=== PATIENT | female | born 1945 | race Caucasian/White ===

== ENCOUNTER 2018-11-30 10:15 | Observation (INO) | payer MEDICARE ==
[~2018-11-30] VITALS: Ht 167.6 cm; Wt 69.4 kg
[2018-11-30] MEDS ORDERED: HYDRALAZINE HCL 20 MG/ML VIAL IV NR (11:00)
[2018-11-30 11:17] LABS: BASOPHILS # (AUTO) 0.1 (0.0-0.1); BASOPHILS % 0.6 % (0.0-1.0); EOSINOPHILS # (AUTO) 0.2 (0.0-0.4); EOSINOPHILS % 2.2 % (0.0-6.0); HEMATOCRIT 39.6 % (34.2-44.1); HEMOGLOBIN 13.6 g/dL (12.0-16.0); LYMPHOCYTES # (AUTO) 2.1 (1.0-3.2); LYMPHOCYTES % 24.4 % (18.0-39.1); MEAN CORPUSCULAR HEMOGLOBIN 31.9 pg (28-32); MEAN CORPUSCULAR HGB CONC 34.3 g/dL (31-35); MONOCYTES # (AUTO) 0.7 (0.2-0.8); MONOCYTES % 8.7 % (4.4-11.3); NEUTROPHILS # (AUTO) 5.4 (2.1-6.9); NEUTROPHILS % 63.9 % (38.7-80.0); PLATELET COUNT 396 x10e3/uL (140-360); RED BLOOD COUNT 4.26 x10e6/uL (3.6-5.1); RED CELL DISTRIBUTION WIDTH 12.7 % (11.7-14.4)
[2018-11-30 11:23] LABS: INR 0.85; PROTHROMBIN TIME 12.1 seconds (11.9-14.5)
--- NOTE | 2018-11-30 11:30 | Diagnostic Imaging Report ---
Exam: Head CT without contrast Indication: Dizziness, hypertension Comparisons: None Technique: Axial images were obtained from the skull base to the vertex. Coronal and sagittal images reconstructed from the axial data. Dose modulation, iterative reconstruction, and/or weight based adjustment of the mA/kV was utilized to reduce the radiation dose to as low as reasonably achievable. FINDINGS: Scalp/skull: No abnormalities. Extra-axial spaces: No masses. No fluid collections. Brain sulci: Mildly prominent. Ventricles: Mild compensatory dilatation. No hydrocephalus. Parenchyma: Scattered hypodensities in the supratentorial white matter are small vessel ischemic changes. Old lacunar vascular insult in the left putamen. No masses, hemorrhage, acute or chronic cortical vascular insults. Sellar/suprasellar region: No abnormalities. Craniocervical junction: Patent foramen magnum. No Chiari one malformation. Incidental findings: Atherosclerotic calcifications in the carotid siphons. IMPRESSION: No acute abnormalities. Chronic findings: 1. Mild generalized volume loss. 2. Mild supratentorial white matter small vessel ischemic changes. 3. Old lacunar vascular insult in the left putamen. A preliminary report was provided by Dr. Agarwal on 11/30/2018 11:30 AM. The images and preliminary report provided by the neuroradiology fellow were reviewed and a final report issued by Dr. Hayes neuroradiology faculty on 11/30/2018 at 1:49 PM. Signed by: Dr. Milly Rodriguez M.D. on 11/30/2018 1:49 PM
[2018-11-30 11:31] LABS: ALANINE AMINOTRANSFERASE 16 IU/L (0-55); ALBUMIN 4.2 g/dL (3.5-5.0); ALBUMIN/GLOBULIN RATIO 1.1 (0.8-2.0); ALKALINE PHOSPHATASE 65 IU/L (40-150); BLOOD UREA NITROGEN 12 mg/dL (7-26); BUN/CREATININE RATIO 15 (6-25); CALCIUM 10.8 mg/dL (8.4-10.2); CARBON DIOXIDE 28 mmol/L (22-29); CHLORIDE 98 mmol/L (98-107); CREATINE KINASE 70 IU/L (29-168); CREATININE, SERUM 0.82 mg/dL (0.57-1.11); EST GLOMERULAR FILTRATION RATE > 60 ML/MIN (60-); GLUCOSE 123 mg/dL (74-118); MAGNESIUM 2.9 MG/DL (1.3-2.1); SODIUM 140 mmol/L (136-145)
[2018-11-30 11:58] LABS: CLARITY,URINE CLOUDY (CLEAR); COLOR,URINE YELLOW (YELLOW)
[2018-11-30 11:59] LABS: BILIRUBIN,URINE NEGATIVE (NEGATIVE); KETONES,URINE NEGATIVE (NEGATIVE); LEUKOCYTE ESTERASE ,URINE NEGATIVE (NEGATIVE); NITRITE,URINE NEGATIVE (NEGATIVE); PROTEIN,URINE DIPSTICK 1+ (NEGATIVE); URINE UROBILINOGEN 0.2 mg/dL (0.2 - 1)
[2018-11-30] MEDS ORDERED: ONDANSETRON HCL INJ 2MG/ML 2ML 2 MG/ML VIAL IV NR (12:00)
[2018-11-30] MEDS ORDERED: MECLIZINE HCL 12.5 MG TAB PO ONE (12:00)
--- NOTE | 2018-11-30 12:03 | Diagnostic Imaging Report ---
EXAMINATION: CHEST SINGLE (PORTABLE) INDICATION: Dizziness. COMPARISON: Chest radiograph 04/03/2010. FINDINGS: TUBES and LINES: There is a cardiac loop recorder. LUNGS: Lungs are well inflated. Azygos lobe. There is no evidence of pneumonia or pulmonary edema. PLEURA: No pleural effusion or pneumothorax. HEART AND MEDIASTINUM: The cardiomediastinal silhouette is unremarkable. BONES AND SOFT TISSUES: No acute osseous abnormality. UPPER ABDOMEN: No free air under the diaphragm. IMPRESSION: No acute radiographic abnormality. Signed by: Dr. Alvin Bernstein MD on 11/30/2018 11:59 AM
[2018-11-30 12:20] LABS: AMORPHOUS SEDIMENT,URINE MODERATE (FEW); BACTERIA,URINE MODERATE /HPF; EPITHELIAL CELLS,URINE FEW /LPF; RBC,URINE 0-5 /HPF (0-5); WBC,URINE (MAN) 0-5 /HPF (0-5)
[2018-11-30] MEDS ORDERED: HYDROCODONE/APAP 10MG-325MG TAB PO NR (12:30)
[2018-11-30] MEDS ORDERED: CLONIDINE HCL 0.1 MG TAB PO NR (12:30)
[2018-11-30] MEDS ORDERED: CALCIUM 1,0001 EACH (12:43)
[2018-11-30] MEDS ORDERED: PRAVACHOL20 MG PO (12:43)
[2018-11-30] MEDS ORDERED: COZAAR25 MG PO (12:43)
[2018-11-30] MEDS ORDERED: VALIUM5 MG PO (12:43)
[2018-11-30] MEDS ORDERED: NORCO 10-325 T1 EACH PO (12:43)
[2018-11-30] MEDS ORDERED: FOLIC ACID1 MG PO (12:43)
[2018-11-30] MEDS ORDERED: ZOLOFT50 MG PO (12:43)
[2018-11-30] MEDS ORDERED: MAGNESIUM OXID400 MG PO (12:43)
[2018-11-30] MEDS ORDERED: COQ-10100 MG PO (12:43)
[2018-11-30] MEDS ORDERED: AMLODIPINE BESY10 MG PO (12:43)
[2018-11-30] MEDS ORDERED: COLACE100 MG PO (12:43)
[2018-11-30] MEDS ORDERED: MIRALAX17 GM (12:43)
[2018-11-30] MEDS ORDERED: BACLOFEN10 MG PO (12:43)
[2018-11-30] MEDS ORDERED: CLONIDINE HCL0.1 MG PO (12:43)
[2018-11-30] MEDS ORDERED: ONDANSETRON HCL INJ 2MG/ML 2ML 2 MG/ML VIAL IV PRN (13:00)
[2018-11-30] MEDS ORDERED: SODIUM CHLORIDE 0.9% 1000ML 1,000 ML IV ONE (13:00)
--- OUTSIDE RECORDS SUMMARY | 2018-11-30 13:02 | XMS REPORT ---
Author Author [facility] Address Unknown Phone Unavailable Care Team Providers Care Cyber Defense Analyst Name Role Phone Gilmar RASHEED Unavailable Unavailable Problems This patient has no known problems. Allergies, Adverse Reactions, Alerts This patient has no known allergies or adverse reactions. Medications This patient has no known medications. Results Test Description Test Time Test Comments Text Results Atomic Results Result Comments CHEST SINGLE (PORTABLE) 2018-11-30 11:57:00 [place] [address] Patient Name: EMY MONROY I MR #: [id number] : 1945 Age/Sex: 73/F Req #: [id number] Adm Physician: Ordered by: HUAN RASHEED MD Report #: [id number] Location: ER Room/Bed: Procedure: [id number] DX/CHEST SINGLE (PORTABLE) Exam Date: 11/30/18 Exam Time: 1118 REPORT STATUS: Signed EXAMINATION: CHEST SINGLE (PORTABLE) I NDICATION: Dizziness. COMPARISON: Chest radiograph 04/03/2010. FINDINGS: TUBES and LINES: There is a cardiac loop recorder. LUNGS: Lungs are well inflated. Azygos lobe. There is no evidence of pneumonia or pulmonary edema. PLEURA: No pleural effusion or pneumothorax. HEART AND MEDIASTINUM: The cardiomediastinal silhouette is unremarkable. BONES AND SOFT TISSUES: No acute osseous abnormality. UPPER ABDOMEN: No free air under the diaphragm. IMPRESSION: No acute radiographic abnormality. Signed by: Dr. Jame Lizama MD on 11/30/2018 11:59 AM Dictated By: JAME LIZAMA MD 115 Transcribed By: MARIANELA on 11/30/18 1150 COPY TO: HUAN RASHEED MD
--- OUTSIDE RECORDS SUMMARY | 2018-11-30 13:02 | XMS REPORT | Clinical Summary ---
Author Author [facility] Address Unknown Phone Unavailable Care Team Providers Care Personnel Security Specialist Name Role Phone Audie Muniz MD PCP Allergies Comments Active Allergy Reactions Severity Noted Date Lowers her blood pressure Digitalis Glycosides Other (See 12/17/2016 Comments) Gluten 12/29/2016 Iodinated Contrast- Oral 12/26/2016 And Iv Dye Iodine Shortness Of High 12/17/2016 Breath Butorphanol Tartrate 12/17/2016 Lowers her blood pressure Tramadol Other (See 12/17/2016 Comments) Medications End Date Status Medication Sig Dispensed Refills Start Date Active docusate sodium (COLACE) Take 100 mg 0 100 MG capsule by mouth 2 (two) times a day. Active baclofen (LIORESAL) 20 MG Take 20 mg by 0 tablet mouth 2 (two) times a day. Active calcium carbonate-vitamin Take 2 0 D3 500 mg-200 unit per tablets by tablet mouth 2 (two) times a day with meals. Active magnesium oxide 250 mg Take 250 mg 0 tablet by mouth every morning. Active amLODIPine (NORVASC) 10 Take 10 mg by 0 mg tablet mouth every morning. Active losartan (COZAAR) 100 MG Take 100 mg 0 tablet by mouth every evening. Active diazePAM (VALIUM) 5 MG Take 5 mg by 0 tablet mouth every 8 (eight) hours as needed for anxiety. Active clonIDINE (CATAPRES) 0.1 Take 0.1 mg 0 MG tablet by mouth daily as needed for high blood pressure (SBP>160). For SBP>160 Active ondansetron (ZOFRAN) 4 MG Take 4 mg by 0 tablet mouth every 6 (six) hours as needed for nausea or vomiting. Active polyethylene glycol Take 17 g by 0 (MIRALAX) 17 gram packet mouth daily as needed. For constipation Active nitroglycerin (NITROSTAT) Place 0.4 mg 0 0.4 MG SL tablet under the tongue every 15 (fifteen) minutes as needed for chest pain (max 3 tabs until severe pain stops). Active coenzyme Q10 (CO Q-10) Take 100 mg 0 100 mg capsule by mouth every evening. Active sertraline (ZOLOFT) 100 Take 100 mg 0 03/01/ MG tablet by mouth 7 nightly. Active pravastatin (PRAVACHOL) Take 20 mg by 0 20 MG tablet mouth 7 nightly. Active gabapentin (NEURONTIN) Take 200 mg 0 100 mg capsule by mouth 7 nightly. Active HYDROcodone-acetaminophen Take 1 tablet 0 (NORCO) 10-325 mg per by mouth 3 7 tablet (three) times a day as needed for pain. Active oxyCODone-acetaminophen Take 1 tablet 0 (PERCOCET) 10-325 mg per by mouth 4 7 tablet (four) times a day as needed for pain. Active folic acid (FOLVITE) 800 Take 800 mcg 0 MCG tablet by mouth every evening. Active Problems Problem Noted Date Head injury due to trauma 04/04/2017 Hypotension 03/08/2017 Chest pain, rule out acute myocardial infarction 01/23/2017 Drug-induced constipation 12/27/2016 Herniated lumbar intervertebral disc 12/26/2016 Arthritis Coronary artery disease Hypertension AL (myocardial infarction) Family History Medical History Relation Name Comments Cancer Brother Diabetes Brother Hypertension Brother Diabetes Brother Hypertension Brother Hypertension Father Kidney cancer Father Hypertension Maternal Grandfather Hypertension Maternal Grandmother Hypertension Mother Hypertension Paternal Grandfather Hypertension Paternal Grandmother Relation Name Status Comments Brother Brother Father Maternal Grandfather Maternal Grandmother Mother Paternal Grandfather Paternal Grandmother Social History Date Tobacco Use Types Packs/Day Years Used Never Smoker Alcohol Use Drinks/Week oz/Week Comments No Sex Assigned at Date Recorded Not on file Industry Job Start Date Occupation Not on file Not on file Not on file Travel End Travel History Travel Start No recent travel history available. Last Filed Vital Signs Not on file Plan of Treatment Health Maintenance Due Date Last Done Comments BREAST CANCER SCREENING 1993 COLON CANCER SCREENING 1993 SHINGLES VACCINES (#1) 1993 65+ PNEUMOCOCCAL VACCINE 2008 (1 of 2 - PCV13) PNEUMOCOCCAL 2008 POLYSACCHARIDE VACCINE AGE 65 AND OVER INFLUENZA VACCINE 02/27/2019 Implants Device Identifier Shelf Expiration Date Model / Serial / Lot Implanted Type Area Manufactur er Cardiac Pacemakers And Related Cardiac Products Pacemakers and Related Products Link Results Not on fileafter 11/29/2017 Insurance Payer Benefit Subscriber ID Type Phone Address Plan / Group MEDICARE MEDICARE xxxxxxxxxx Medicare [place], [place] PART A AND B [employer] M[employer] OF xxxxxx-xx Commercial [employer] Advance Directives Patient has advance care planning documents, and code status on file. For more i nformation, please contact: David Pereira [address] [place] [address] Date Inactivated Comments Code Status Date Activated 01/24/2017 8:38 PM Full Code 01/23/2017 10:20 AM Code Status decision reached by: Patient
--- NOTE | 2018-11-30 13:03 | NUR ---
report received from ER for patient transfer. patient to arrive alert and oriented via wheelchair.
--- NOTE | 2018-11-30 13:20 | NUR ---
patient arrived on unit via wheelchair, alert and oriented. call pittman within reach and bed in lowest position
[2018-11-30 13:33] VITALS: BP 176/82
[2018-11-30] MEDS ORDERED: PNEUMOCOCCAL VACCINE POLYVALENT 23 MCG/0.5 ML VIAL IM NR (13:40)
[2018-11-30 13:44] VITALS: BP 176/82
[2018-11-30] MEDS ORDERED: CLONIDINE HCL 0.1 MG TAB PO PRN (13:45)
[2018-11-30 13:55] VITALS: BP 176/82
--- NOTE | 2018-11-30 14:47 | History and Physical ---
CHIEF COMPLAINT: Dizziness and vertigo. HISTORY OF PRESENT ILLNESS: The patient is a 73-year-old woman. She has a history of prior chest pain and coronary artery spasm. She is followed by Dr. Gonzalez Clifford in [place], [place]. She had a recent echocardiogram and stress test that were negative. She also has a loop recorder. She came in complaining of vertigo that was worse when she would sit up. She had some associated dizziness, but no ataxia. She did not have any focal arm or leg weakness. She did have some nausea. PAST MEDICAL HISTORY: 1. Migraine headaches. 2. Chronic back pain. 3. Hypertension. 4. Coronary artery spasms. PAST SURGICAL HISTORY: 1. Back surgery. 2. Cholecystectomy. ALLERGIES: THE PATIENT IS ALLERGIC TO IODINE, MACROBID, AND TRAMADOL. THE PATIENT ALSO REPORTS BEING ALLERGIC TO DIGOXIN. SOCIAL HISTORY: The patient is not an active smoker or drinker. FAMILY HISTORY: Noncontributory. REVIEW OF SYSTEMS: The patient is afebrile. The patient has no headache. There is no neck pain. She does not complain of any sore throat. She has no chest pain. She does not have cough or difficulty breathing. She has no abdominal pain. She has no nausea or vomiting. She has no leg edema. PHYSICAL EXAMINATION: VITAL SIGNS: The patient is afebrile, blood pressure is 176/82, and the pulse is 76. HEENT: No facial swelling or erythema. The nasal mucosa is normal. The oropharynx is normal. LYMPHATIC: No submandibular, cervical, or supraclavicular adenopathy. CARDIAC: Regular rate and rhythm with normal S1, S2. LUNGS: Auscultation of lungs reveals clear breath sounds bilaterally. There is no wheezing. ABDOMEN: Soft, nontender. There is no rebound or guarding. EXTREMITIES: No leg edema or calf tenderness. There is no cyanosis, clubbing. SKIN: No rashes. NEUROLOGICAL: No focal abnormalities. LABORATORY DATA: BUN to creatinine ratio is normal. The other electrolytes are within normal limits. CBC is normal. PT and INR normal. RADIOGRAPHIC DATA: 1. CT scan of the brain shows no active disease. 2. Chest x-ray shows no active disease. IMPRESSION: 1. Vertigo. 2. Hypertension. 3. Chronic back pain. 4. Migraines. PLAN: 1. The patient will be placed in observation. 2. Carotid duplex study and echocardiogram. 3. MRI. 4. Neurology consultation. 5. Cardiology consultation. MD AMA Khan/GIANLUCA /[id number] MTDJose
[2018-11-30] MEDS: DIAZEPAM 5 MG TAB PO SCH ×2 (15:18→21:08)
--- NOTE | 2018-11-30 15:36 | Diagnostic Imaging Report ---
EXAMINATION: MRI of the brain without contrast. HISTORY: Dizziness, vertigo, essential hypertension COMPARISON: None. TECHNIQUE: Sagittal T2; axial DWI, T2, FLAIR, T1-IR, T2 gradient echo; coronal FLAIR. IMAGE QUALITY: Adequate. FINDINGS: Parenchyma: 1. A few periventricular white matter T2 and FLAIR hyperintensities, most likely age appropriate minimal chronic microvascular ischemic changes. Otherwise no areas of abnormal signal intensity in the brain parenchyma. 2. No mass, hemorrhage, acute or chronic infarcts. Skull: Unremarkable. Vessels: Expected flow voids present in the major arteries and dural sinuses. Extra-axial spaces: No abnormal signal intensity or mass effect. Brain volume: Within normal limits for age. Ventricles: No hydrocephalus or displacement. Foramen magnum: Unremarkable. Sella: Unremarkable. Paranasal / mastoid sinuses: No significant inflammatory disease. Incidental findings: Partially visualized degenerative changes of the cervical spine with canal narrowing at C4-C5. IMPRESSION: No intracranial abnormalities, particularly no acute infarcts. Signed by: Dr. Milly Rodriguez M.D. on 11/30/2018 3:33 PM
[2018-11-30 15:54] VITALS: BP 131/63
[2018-11-30] MEDS: LOSARTAN POTASSIUM 25 MG TAB PO SCH (18:00)
--- NOTE | 2018-11-30 18:45 | NUR ---
handoff report given to security shift manager nurse, patient aware of change and in no distress. call pittman within reach and bed in lowest position.
[2018-11-30 19:21] VITALS: BP 131/63
[2018-11-30 19:49] LABS: CREATINE KINASE 59 IU/L (29-168)
[2018-11-30 20:00] VITALS: BP 110/62
[2018-11-30] MEDS: MECLIZINE HCL 12.5 MG TAB PO PRN (21:04)
[2018-11-30] MEDS: HYDROCODONE/APAP 10MG-325MG TAB PO PRN (21:04)
[2018-12-01] VITALS: BP 117/56
[2018-12-01] MEDS: HYDROCODONE/APAP 10MG-325MG TAB PO PRN ×2 (03:28→09:35)
[2018-12-01 04:00] VITALS: BP 137/69
[2018-12-01 05:52] LABS: BASOPHILS # (AUTO) 0.1 (0.0-0.1); BASOPHILS % 0.9 % (0.0-1.0); EOSINOPHILS # (AUTO) 0.2 (0.0-0.4); EOSINOPHILS % 4.2 % (0.0-6.0); HEMATOCRIT 35.5 % (34.2-44.1); HEMOGLOBIN 11.8 g/dL (12.0-16.0); LYMPHOCYTES # (AUTO) 1.7 (1.0-3.2); LYMPHOCYTES % 31.9 % (18.0-39.1); MEAN CORPUSCULAR HEMOGLOBIN 31.8 pg (28-32); MEAN CORPUSCULAR HGB CONC 33.2 g/dL (31-35); MEAN CORPUSCULAR VOLUME 95.7 fL (81-99); MONOCYTES # (AUTO) 0.7 (0.2-0.8); MONOCYTES % 12.7 % (4.4-11.3); NEUTROPHILS # (AUTO) 2.7 (2.1-6.9); NEUTROPHILS % 49.9 % (38.7-80.0); PLATELET COUNT 337 x10e3/uL (140-360); RED BLOOD COUNT 3.71 x10e6/uL (3.6-5.1); RED CELL DISTRIBUTION WIDTH 12.6 % (11.7-14.4)
[2018-12-01 06:28] LABS: ALANINE AMINOTRANSFERASE 13 IU/L (0-55); ALBUMIN 3.3 g/dL (3.5-5.0); ALBUMIN/GLOBULIN RATIO 1.1 (0.8-2.0); ALKALINE PHOSPHATASE 51 IU/L (40-150); ANION GAP 14.1 mmol/L (8-16); BLOOD UREA NITROGEN 12 mg/dL (7-26); BUN/CREATININE RATIO 16 (6-25); CALCIUM 9.2 mg/dL (8.4-10.2); CARBON DIOXIDE 25 mmol/L (22-29); CHLORIDE 105 mmol/L (98-107); CREATININE, SERUM 0.73 mg/dL (0.57-1.11); EST GLOMERULAR FILTRATION RATE > 60 ML/MIN (60-); GLUCOSE 98 mg/dL (74-118); POTASSIUM 4.1 mmol/L (3.5-5.1); SODIUM 140 mmol/L (136-145)
[2018-12-01 06:36] LABS: CREATINE KINASE MB 1.2 ng/mL (0-5.0)
--- NOTE | 2018-12-01 06:40 | NUR ---
handoff report received from shift mechanic nurse, patient aware of change and in no distress at this time, son at bedside. call pittman within reach and bed in lowest position.
[2018-12-01 07:10] VITALS: BP 120/69
[2018-12-01] MEDS ORDERED: AMLODIPINE BESYLATE 10 MG TAB PO SCH (09:00)
[2018-12-01] MEDS ORDERED: ASPIRIN 81 MG ENTERIC COATED PO SCH (09:00)
[2018-12-01] MEDS ORDERED: SERTRALINE HCL 100 MG TAB PO SCH (09:00)
[2018-12-01] MEDS ORDERED: MAGNESIUM OXIDE 400 MG TAB PO SCH (09:00)
[2018-12-01] MEDS ORDERED: DOCUSATE SODIUM 100 MG CAP PO SCH (09:00)
[2018-12-01] MEDS ORDERED: FOLIC ACID 1 MG TAB PO SCH (09:00)
[2018-12-01 09:01] VITALS: BP 120/69
[2018-12-01] MEDS: DIAZEPAM 5 MG TAB PO SCH (09:25)
[2018-12-01] MEDS: LOSARTAN POTASSIUM 25 MG TAB PO SCH (09:25)
[2018-12-01] MEDS: MECLIZINE HCL 12.5 MG TAB PO PRN (10:25)
--- NOTE | 2018-12-01 11:10 | NUR ---
CASE MANAGEMENT INITIAL ASSESSMENT Tube Sizer Operator to bedside to discuss plan of care with patient/family. CM/SW role and care transitions discussed. Anticipated discharge plan discussed along with duration of care. CM/SW discussed patients right to make decisions in care. CM/SW work hours given. Patient lives: WITH HER FAMILY OF 6 AND A DOG Admit/Transfer: ER Hospital/ER visits since last admit:SHE HAS BEEN TO HOSP/ER THIS PAST YEAR W/ NAUSEA AND ALSO CHEST PAIN POA/Emergency contact: SON: POONAM KEE [phone] Current/Previous Home Health: NO PCP/Follow-up Care: DR. MANUEL AGARWAL Current/Previous DME: [facility], W/C Medications (referring to index hospitalization or the first time you were in the hospital) a. Were changes made in your medications when you were in the hospital on [date of index hospitalization]? Yes No X Not sure Explain: Note: If no or not sure, please skip to question d b. Did you understand the changes? Yes No Explain: c. Were you able to obtain your new medications right away? Yes No n/a SNF only Explain: d. Were you able to take your medications like the doctor wanted you to? X Yes No Explain: MY SON SETS UP MY MEDICATIONS FOR ME TO TAKE e. Did the hospital give you an accurate, easy to understand list of medications when you left? X Yes No n/a SNF only Explain: Scale of 1-10 how comfortable does patient feel with disease management in outpatient settin Other Services: 0 Employment Status: RETIRED Areas of Concerns: 0 Referral Needs: 0 Education Needs: ANY NEW MEDS; EDUCATED ON [place]AR[place] LETTER IMM/STARKEY given and signed (if applicable): YES, STARKEY Goal for discharge: TO RETURN HOME CM/SW left business card at the bedside with contact information. Name and number was also written on the patients whiteboard. Patient verbalized understanding of discussion. CM will follow-up with ongoing discharge and transition of care needs.
[2018-12-01 12:07] VITALS: BP 144/80
--- NOTE | 2018-12-01 14:49 | NUR ---
patient alert and oriented. discharge instructions given to patient, patient verbalized understanding. IV catheter discontinued, catheter in tact and small dressing applied. patient to be wheeled to personal auto for daughter to drive home.
--- NOTE | 2018-12-01 17:12 | Consultation ---
DATE OF CONSULTATION: Cardiology Consultation Thank you, Dr. Eduardo Mckoy for this cardiac consultation. IMPRESSION: 1. Migraine and vertigo. 2. History of significant C-spine and thoracic spine arthritis and back surgery in the past, on pain medications and pain therapy doctor is following as an outpatient. 3. The patient's history of chest pain. 4. Hypertension. 5. Some anxiety. Ms. Woo Glez is a pleasant patient about 73-year-old is admitted under Dr. Eduardo Mckoy on 11/30/2018 for nausea, some mild vomiting, dizziness, and vertigo-like symptoms. These are all started new for her. According to her, she never had any migraines, headaches, or vertigo. When she turned to the left side, and today she is feeling better. The patient has a history of hypertension and the patient also has history of chest pain. The patient had cardiac stress test done possibly about 3 to 4 years ago and possibly diagnosed with coronary spasm. According to her, she is allergic to iodine and the patient has no prior history of myocardial infarction or any history of stroke. The patient is a nonsmoker. The patient's previous surgeries include the following, which are as follows. Surgeries include back surgery. The patient is allergic to multiple medications including digitalis, iodine, nifedipine, nitrofurantoin, nitroglycerin, and tramadol. The patient neurologically has no history of stroke, but this is the first time she had some dizziness and vertigo-like symptoms. The patient at this time is a very good historian and the son also was at bedside. She is moderately active, but she has arthritic symptoms also. PRESENT MEDICATIONS: Include which are hydrocodone, sertraline, Zoloft, diazepam, amlodipine 10 mg a day, aspirin 81 mg a day, meclizine, clonidine hydrochloride 0.2 mg, and Zofran at this time in the hospital. The patient is not taking any cholesterol medication at this time. PHYSICAL EXAMINATION: HEART: No significant murmur. LUNGS: Normal. ABDOMEN: Normal. EXTREMITIES: No pedal edema. Carotid, no bruit. LABORATORY EVALUATION: Hemoglobin is about 13.6 %. WBC count is normal, and platelet count is also within normal limits. The patient's imaging shows a chest x-ray is normal. The patient had MRI of the brain and it shows no intracranial abnormalities. No acute infarcts and the patient found to have C4 and C5 canal narrowing and arthritic changes. CT scan of the brain shows the patient has chronic vascular changes, old lacunar vascular insult in the left putamen. At this time, cardiac pace sabmarcela. Will continue all her present medications and I ordered a Lexiscan stress test and echocardiogram. According to her, stress dose was done maybe about 2 to 4 years ago. The patient had some nausea and some atypical chest pain when she came to the hospital. I have not reviewed the carotid duplex scan yet. Thank you again for this consultation. MD JERMAIN De/GIANLUCA /[id number]
[2018-12-01] MEDS ORDERED: PRAVASTATIN 20 MG TAB PO SCH (21:00)
--- NOTE | 2018-12-02 06:20 | Discharge Summary ---
DISCHARGE MEDICATIONS: 1. Amlodipine 10 mg p.o. daily. 2. Baclofen 10 mg p.o. t.i.d. 3. Clonidine 0.1 mg p.o. t.i.d. p.r.n. 4. Valium 5 mg p.o. b.i.d. 5. Colace 100 mg p.o. daily. 6. Folic acid 1 mg p.o. daily. 7. Picacho 10/325 one p.o. t.i.d. p.r.n. 8. Cozaar 25 mg p.o. daily. 9. Magnesium oxide 400 mg p.o. daily. 10. Pravachol 20 mg p.o. daily. 11. Zoloft 50 mg p.o. at bedtime. RADIOGRAPHIC DATA: MRI of the brain shows no acute pathology. CT scan of the brain shows no acute pathology. Chest x-ray shows no active disease. Echocardiogram shows a preserved ejection fraction of 55% with no significant valvular abnormalities. Carotid duplex shows some atherosclerosis with no significant obstruction. CONSULTING PHYSICIAN: Dr. Witt of Cardiology. DISCHARGE DIAGNOSES: 1. Benign positional vertigo. 2. Migraine headaches. 3. Chronic back pain. 4. Hypertension. HISTORY OF PRESENT ILLNESS: The patient is a 73-year-old woman. She has a history of prior chest pain and coronary artery spasm. She is followed by Dr. Gonzalez Masterson in [place], [place]. She came in complaining of vertigo that was worse when she sat up. She had no ataxia. She denied nausea or vomiting. HOSPITAL COURSE: The patient was admitted. She received some IV fluids and some meclizine and had symptomatic improvement. CT scan followed by MRI was negative. There were no acute abnormalities. There was nothing to suggest any stroke. She was subsequently seen by Cardiology in consultation and an echocardiogram and a carotid duplex. Cardiology also recommended a stress test, but the patient opted against this and said that she would follow up with her regular doctor. DISPOSITION: The patient will be discharged home and will follow up with Dr. Gonzalez Masterson in [place], [place]. MD AMA Khan/GIANLUCA /[id number]
== END 2018-12-01 14:55 | disposition home or self-care (01) ==
LOC: ER 10:15 → ERHOLD 13:00 → IMCU 13:20
PROVIDERS: ADMIT Internal Medicine Critical Care Medicine; ATTEND Internal Medicine Critical Care Medicine
DX: H81.10 Benign paroxysmal vertigo, unspecified ear (principal); G43.909 Migraine, unspecified, not intractable, without status migrainosus; M54.9 Dorsalgia, unspecified; G89.29 Other chronic pain; I10 Essential (primary) hypertension; F41.9 Anxiety disorder, unspecified; M47.893 Other spondylosis, cervicothoracic region; Z86.73 Personal history of transient ischemic attack (TIA), and cerebral infarction without residual deficits
CPT/HCPCS: 36415 ×2; 70450; 70551; 71045; 80053 ×2; 81001; 82550 ×2; 82553 ×2; 83735; 84484 ×2; 85025 ×2; 85610; 85730; 87086; 93005; 93306; 93880; 99284; G0378 ×2; J2405; J7030; J8597 ×2

== ENCOUNTER 2019-06-02 07:57 | Emergency (ER) | payer MEDICARE, OTHER ==
[~2019-06-02] VITALS: Ht 167.6 cm; Wt 69.4 kg
[~2019-06-02 07:57] MED LIST: AMLODIPINE BESY10 MG PO; BACLOFEN10 MG PO; CALCIUM 1,0001 EACH; CLONIDINE HCL0.1 MG PO; COLACE100 MG PO; COQ-10100 MG PO; COZAAR25 MG PO; FOLIC ACID1 MG PO; MAGNESIUM OXID400 MG PO; MIRALAX17 GM; NORCO 10-325 T1 EACH PO; PRAVACHOL20 MG PO; VALIUM5 MG PO; ZOLOFT50 MG PO
[2019-06-02 09:07] LABS: BILIRUBIN,URINE NEGATIVE (NEGATIVE); CLARITY,URINE CLEAR (CLEAR); COLOR,URINE YELLOW (YELLOW); KETONES,URINE NEGATIVE (NEGATIVE); LEUKOCYTE ESTERASE ,URINE TRACE (NEGATIVE); NITRITE,URINE NEGATIVE (NEGATIVE); PROTEIN,URINE DIPSTICK NEGATIVE (NEGATIVE); URINE UROBILINOGEN 0.2 mg/dL (0.2 - 1)
[2019-06-02 09:12] LABS: BASOPHILS % 0.6 % (0.0-1.0); EOSINOPHILS # (AUTO) 0.2 (0.0-0.4); EOSINOPHILS % 3.6 % (0.0-6.0); HEMATOCRIT 34.9 % (34.2-44.1); HEMOGLOBIN 11.6 g/dL (12.0-16.0); LYMPHOCYTES # (AUTO) 2.6 (1.0-3.2); LYMPHOCYTES % 41.3 % (18.0-39.1); MEAN CORPUSCULAR HEMOGLOBIN 31.6 pg (28-32); MEAN CORPUSCULAR HGB CONC 33.2 g/dL (31-35); MEAN CORPUSCULAR VOLUME 95.1 fL (81-99); MONOCYTES # (AUTO) 0.8 (0.2-0.8); MONOCYTES % 12.6 % (4.4-11.3); NEUTROPHILS # (AUTO) 2.6 (2.1-6.9); NEUTROPHILS % 41.6 % (38.7-80.0); PLATELET COUNT 399 x10e3/uL (140-360); RED BLOOD COUNT 3.67 x10e6/uL (3.6-5.1); RED CELL DISTRIBUTION WIDTH 12.2 % (11.7-14.4)
[2019-06-02] MEDS ORDERED: SODIUM CHLORIDE 0.9% 1000ML 1,000 ML ONE (09:14)
[2019-06-02] MEDS ORDERED: ONDANSETRON HCL INJ 2MG/ML 2ML 2 MG/ML VIAL ONE (09:14)
[2019-06-02] MEDS ORDERED: FAMOTIDINE 20 MG/2 ML VIAL IV ONE ×2 (09:14→09:30)
[2019-06-02] MEDS ORDERED: SODIUM CHLORIDE 0.9% 1000ML 1,000 ML IV SCH (09:15)
[2019-06-02] MEDS ORDERED: ONDANSETRON HCL INJ 2MG/ML 2ML 2 MG/ML VIAL IV ONE (09:30)
[2019-06-02 09:31] LABS: ALANINE AMINOTRANSFERASE 15 IU/L (0-55); ALBUMIN 3.8 g/dL (3.5-5.0); ALBUMIN/GLOBULIN RATIO 1.2 (0.8-2.0); ALKALINE PHOSPHATASE 61 IU/L (40-150); ANION GAP 15.8 mmol/L (8-16); BLOOD UREA NITROGEN 16 mg/dL (7-26); BUN/CREATININE RATIO 16 (6-25); CALCIUM 9.7 mg/dL (8.4-10.2); CARBON DIOXIDE 31 mmol/L (22-29); CHLORIDE 94 mmol/L (98-107); CREATINE KINASE 52 IU/L (29-168); CREATININE, SERUM 0.97 mg/dL (0.57-1.11); EST GLOMERULAR FILTRATION RATE 56 ML/MIN (60-); GLUCOSE 86 mg/dL (74-118); POTASSIUM 3.8 mmol/L (3.5-5.1); SODIUM 137 mmol/L (136-145)
[2019-06-02 10:04] LABS: AMORPHOUS SEDIMENT,URINE FEW (FEW); BACTERIA,URINE MODERATE /HPF; EPITHELIAL CELLS,URINE MODERATE /LPF; MUCUS,URINE FEW (RARE)
[2019-06-02] MEDS ORDERED: KEFLEX500 MG PO (11:07)
== END 2019-06-02 11:56 | disposition home or self-care (01) ==
LOC: ER 07:57
DX: R10.84 Generalized abdominal pain (principal); R11.0 Nausea; N30.91 Cystitis, unspecified with hematuria
CPT/HCPCS: 36415; 80053; 81001; 82550; 82553; 83690; 84484; 85025; 99284; J2405; J7030

== ENCOUNTER 2019-06-10 12:58 | Emergency (ER) | payer MEDICARE, OTHER ==
[~2019-06-10] VITALS: Ht 167.6 cm; Wt 69.4 kg
[~2019-06-10 12:58] MED LIST changes: +KEFLEX500 MG PO
[2019-06-10] MEDS ORDERED: FAMOTIDINE 20 MG/2 ML VIAL IV STA (13:18)
[2019-06-10] MEDS ORDERED: DIPHENHYDRAMINE HCL INJ 50 MG/ML VIAL IV ONE (13:30)
[2019-06-10] MEDS ORDERED: PREDNISONE 20 MG TAB PO ONE (13:30)
[2019-06-10] MEDS ORDERED: EPINEPHRINE 0.3 MG/0.3 ML PEN.INJCTR IM STA (13:33)
[2019-06-10] MEDS ORDERED: EPINEPHRINE HCL 1:1000 1ML 1 MG/ML AMP ONE (13:41)
[2019-06-10] MEDS ORDERED: DIPHENHYDRAMINE HCL 25 MG CAP PO ONE (13:45)
[2019-06-10] MEDS ORDERED: FAMOTIDINE 20 MG TAB PO ONE (13:45)
[2019-06-10] MEDS ORDERED: PREDNISONE 20 MG TAB PO NR (14:00)
[2019-06-10] MEDS ORDERED: HYDROCORTISONE 1% CREAM 30 GM TUBE TOP PRN (14:15)
[2019-06-10] MEDS ORDERED: EPINEPHRINE HCL 1:1000 1ML 1 MG/ML AMP IM NR (14:15)
== END 2019-06-10 14:50 | disposition home or self-care (01) ==
LOC: ER 13:02
DX: L50.0 Allergic urticaria (principal); T78.40XA Allergy, unspecified, initial encounter; I10 Essential (primary) hypertension; E78.5 Hyperlipidemia, unspecified; F41.9 Anxiety disorder, unspecified; I25.2 Old myocardial infarction
CPT/HCPCS: 93005; 99283; J0171; J7512

== ENCOUNTER 2019-06-21 08:40 | Emergency (ER) | payer MEDICARE, OTHER ==
[~2019-06-21] VITALS: Ht 167.6 cm; Wt 69.4 kg
--- NOTE | 2019-06-21 09:05 | NUR ---
IV PLACEMENT UNSUCCESFUL. PATIENT STATES SHE IS A HARD STICK AND IS REQUESTING AND EJ
[2019-06-21 09:27] LABS: BILIRUBIN,URINE NEGATIVE (NEGATIVE); CLARITY,URINE CLEAR (CLEAR); KETONES,URINE NEGATIVE (NEGATIVE); LEUKOCYTE ESTERASE ,URINE NEGATIVE (NEGATIVE); NITRITE,URINE NEGATIVE (NEGATIVE); PROTEIN,URINE DIPSTICK NEGATIVE (NEGATIVE); URINE UROBILINOGEN 0.2 mg/dL (0.2 - 1)
[2019-06-21 09:30] LABS: COLOR,URINE COLORLESS (YELLOW)
[2019-06-21] MEDS: KETOROLAC TROMETHAMINE 30 MG/ML VIAL IV ONE (09:34)
[2019-06-21 09:40] LABS: BACTERIA,URINE FEW /HPF; EPITHELIAL CELLS,URINE FEW /LPF; RBC,URINE 0-5 /HPF (0-5); WBC,URINE (MAN) 0-5 /HPF (0-5)
--- NOTE | 2019-06-21 09:51 | NUR ---
EJ PER DR. WILI TEMPLE. PETROS, RIBBON WINDER NOTIFIED TO ATTEMPT
--- NOTE | 2019-06-21 10:29 | NUR ---
SPOKE WITH PETROS, RAYON CONER. HE IS WAITING FOR ULTRASOUND FROM SURGERY. DR. RASHEED AWARE LABS HAVE NOT BEEN DRAWN YET. PATIENT UPDATED ON STATUS
--- NOTE | 2019-06-21 10:41 | NUR ---
PELLETIZERPETROS AT BEDSIDE ATTEMPTING IV ACCESS WITH ULTRASOUND MACHINE
[2019-06-21] MEDS: SODIUM CHLORIDE 0.9% 500ML 500 ML IV ONE (10:48)
[2019-06-21] MEDS: MORPHINE SULFATE INJ 4 MG/ML INJ 1ML IV ONE (10:48)
[2019-06-21] MEDS: ONDANSETRON HCL INJ 2MG/ML 2ML 2 MG/ML VIAL IV ONE (10:48)
--- NOTE | 2019-06-21 10:48 | NUR ---
20 GUAGE IV PLACED IN LEFT AC PER PETROS Ho /BRUSH TRIMMING MACHINE SETTER OBTAINED LABS
[2019-06-21 10:55] LABS: BASOPHILS # (AUTO) 0.1 (0.0-0.1); BASOPHILS % 0.5 % (0.0-1.0); EOSINOPHILS # (AUTO) 0.3 (0.0-0.4); EOSINOPHILS % 2.4 % (0.0-6.0); HEMATOCRIT 38.4 % (34.2-44.1); HEMOGLOBIN 12.6 g/dL (12.0-16.0); LYMPHOCYTES # (AUTO) 3.5 (1.0-3.2); LYMPHOCYTES % 30.6 % (18.0-39.1); MEAN CORPUSCULAR HEMOGLOBIN 30.4 pg (28-32); MEAN CORPUSCULAR HGB CONC 32.8 g/dL (31-35); MEAN CORPUSCULAR VOLUME 92.5 fL (81-99); MONOCYTES # (AUTO) 1.1 (0.2-0.8); MONOCYTES % 9.4 % (4.4-11.3); NEUTROPHILS # (AUTO) 6.4 (2.1-6.9); NEUTROPHILS % 56.2 % (38.7-80.0); PLATELET COUNT 491 x10e3/uL (140-360); RED BLOOD COUNT 4.15 x10e6/uL (3.6-5.1); RED CELL DISTRIBUTION WIDTH 12.8 % (11.7-14.4)
[2019-06-21 11:12] LABS: ALBUMIN 4.1 g/dL (3.5-5.0); ALBUMIN/GLOBULIN RATIO 1.1 (0.8-2.0); ANION GAP 15.2 mmol/L (8-16); CALCIUM 10.5 mg/dL (8.4-10.2); CREATININE, SERUM 0.92 mg/dL (0.57-1.11); POTASSIUM 3.2 mmol/L (3.5-5.1)
--- NOTE | 2019-06-21 12:20 | NUR ---
SPOKE WITH MARY IN RADIOLOGY. THEY ARE AWAITING INFORMATION FROM [facility] TO RECEIVE CT REPORT
--- NOTE | 2019-06-21 12:28 | NUR ---
STILL WAITING ON CT RESULTS/REPORT
[2019-06-21] MEDS: POTASSIUM CHLORIDE 20 MEQ TAB CR PO STA (12:35)
--- NOTE | 2019-06-21 13:51 | Diagnostic Imaging Report ---
EXAM: CT Abdomen and Pelvis WITHOUT contrast INDICATION: Stone Protocol COMPARISON: None. TECHNIQUE: Abdomen and pelvis were scanned utilizing a multidetector helical scanner from the lung base to the pubic symphysis without administration of IV contrast. Absence of intravenous contrast decreases sensitivity for detection of focal lesions and vascular pathology. Coronal and sagittal reformations were obtained. Routine protocol was performed. IV CONTRAST: None ORAL CONTRAST: Water COMPLICATIONS: None RADIATION DOSE: Total DLP: ... mGy*cm Estimated effective dose: (DLP x 0.015 x size factor) mSv CTDIvol has been reviewed. It is below the limits set by the Radiation Protocol Committee (RPC). FINDINGS: LINES and TUBES: None. LOWER THORAX: Unremarkable HEPATOBILIARY: No focal liver lesion No biliary ductal dilation. GALLBLADDER: There are cholecystectomy clips. SPLEEN: No splenomegaly. PANCREAS: No focal masses or ductal dilatation. ADRENALS: No adrenal nodules KIDNEYS/URETERS: No hydronephrosis. No cystic or solid mass lesions. No stones. GI TRACT: No abnormal distention, wall thickening, or evidence of bowel obstruction. Appendix is normal. PELVIC ORGANS/BLADDER: The bladder is unremarkable. LYMPH NODES: No lymphadenopathy. VESSELS: Unremarkable. BONES: There are extensive degenerative changes in the lumbar spine. SOFT TISSUES: Unremarkable. IMPRESSION: No nephroureterolithiasis or hydroureteronephrosis. Signed by: Leif Garcia MD on 06/21/2019 10:22 AM
== END 2019-06-21 13:53 | disposition home or self-care (01) ==
LOC: ER 08:40
DX: G89.29 Other chronic pain (principal); S39.012A Strain of muscle, fascia and tendon of lower back, initial encounter; I51.9 Heart disease, unspecified; I10 Essential (primary) hypertension; E78.5 Hyperlipidemia, unspecified; F41.9 Anxiety disorder, unspecified
CPT/HCPCS: 36415; 74176; 80053; 81001; 85025; 87086; 99284; J2270; J2405; J7040

== ENCOUNTER 2024-10-01 17:26 | Emergency (ER) | payer MEDICARE, OTHER ==
[~2024-10-01] VITALS: Ht 167.6 cm; Wt 69.4 kg
[~2024-10-01 17:26] MED LIST changes: +MEDROL4 M2 PO; +ORPHENADRINE C100 MG PO
[2024-10-01 17:52] VITALS: TEMP 98.7
[2024-10-01] MEDS: ONDANSETRON HCL 4 MG ORAL DISINTEGRATING TAB PO ONE (18:55)
[2024-10-01 18:57] VITALS: PULSE 70; RESP 18
[2024-10-01] MEDS ORDERED: ONDANSETRON ODT4 MG SL (20:35)
[2024-10-01] MEDS ORDERED: HYDROCODONE/APAP 7.5MG-325MG 1 EA TAB PO ONE (20:45)
[2024-10-01 20:50] VITALS: BP 134/89; PULSE 79; RESP 18; TEMP 98.2; O2SAT 100
== END 2024-10-01 20:51 | disposition home or self-care (01) ==
LOC: ER 17:51
DX: S06.0X0A Concussion without loss of consciousness, initial encounter (principal); R51.9 Headache, unspecified; W06.XXXA Fall from bed, initial encounter; Y93.84 Activity, sleeping; Y92.89 Other specified places as the place of occurrence of the external cause; I10 Essential (primary) hypertension; E78.5 Hyperlipidemia, unspecified; F41.9 Anxiety disorder, unspecified; I25.2 Old myocardial infarction
CPT/HCPCS: 70450; 72125; 99284; Q0162

== ENCOUNTER 2025-01-20 08:07 | Emergency (ER) | payer MEDICARE, OTHER ==
[~2025-01-20] VITALS: Ht 167.6 cm; Wt 69.4 kg
[~2025-01-20 08:07] MED LIST changes: +ONDANSETRON ODT4 MG SL
[2025-01-20 08:11] VITALS: PULSE 78; RESP 17; TEMP 98.2; O2SAT 100
[2025-01-20] MEDS ORDERED: HYDROXYZINE HCL 25 MG TAB PO STA (08:41)
== END 2025-01-20 09:06 | disposition home or self-care (01) ==
LOC: ER 08:10
DX: N81.89 Other female genital prolapse (principal); I10 Essential (primary) hypertension; E78.5 Hyperlipidemia, unspecified; F41.9 Anxiety disorder, unspecified; M19.09 Primary osteoarthritis, other specified site; I25.2 Old myocardial infarction
CPT/HCPCS: 99282

== ENCOUNTER 2025-02-16 14:38 | Emergency (ER) | payer MEDICARE, OTHER ==
[~2025-02-16] VITALS: Ht 167.6 cm; Wt 69.4 kg
[2025-02-16] MEDS: SODIUM CHLORIDE 0.9% 1000ML 1,000 ML IV STA (16:19)
[2025-02-16 16:37] LABS: BASOPHILS % 0.5 % (0.0-1.0); EOSINOPHILS % 0.7 % (0.0-6.0); LYMPHOCYTES % 21.5 % (18.0-39.1); MONOCYTES % 9.6 % (4.4-11.3); NEUTROPHILS % 67.3 % (38.7-80.0); RED CELL DISTRIBUTION WIDTH 13.3 % (11.7-14.4)
[2025-02-16 16:48] LABS: LEUKOCYTE ESTERASE ,URINE NEGATIVE (NEGATIVE); PROTEIN,URINE DIPSTICK TRACE (NEGATIVE); URINE UROBILINOGEN 0.2 mg/dL (0.2 - 1)
[2025-02-16 17:51] LABS: INR 0.86
[2025-02-16 18:00] LABS: EST GLOMERULAR FILTRATION RATE 72.0 ML/MIN (>=60)
[2025-02-16 18:46] VITALS: PULSE 78; RESP 19; TEMP 98.8
[2025-02-16] MEDS: KCL 20 MEQ PACKET/ ORAL SOLN NG STA (18:56)
[2025-02-16] MEDS: ONDANSETRON HCL INJ 2MG/ML 2ML 2 MG/ML VIAL IV STA (19:08)
[2025-02-16] MEDS: HYDROCODONE/APAP 10MG-325MG TAB PO ONE (19:09)
[2025-02-16 20:17] VITALS: BP 133/65; PULSE 77; RESP 19; TEMP 98.8; O2SAT 98
== END 2025-02-16 20:35 | disposition home or self-care (01) ==
LOC: ER 15:14
DX: S16.1XXA Strain of muscle, fascia and tendon at neck level, initial encounter (principal); M62.838 Other muscle spasm; E87.6 Hypokalemia; R63.0 Anorexia; I10 Essential (primary) hypertension; E78.5 Hyperlipidemia, unspecified; M19.09 Primary osteoarthritis, other specified site; F41.9 Anxiety disorder, unspecified; R94.31 Abnormal electrocardiogram [ECG] [EKG]; I25.2 Old myocardial infarction
CPT/HCPCS: 36415; 70450; 71045; 72125; 80053; 81001; 82550; 83735; 84484; 85025; 85610; 85730; 87086; 93005; 99284; J2405; J2470; J7030